=== PATIENT | male | born 1955 | race Caucasian/White ===

== ENCOUNTER 2019-01-18 14:52 | Emergency (ER) | payer OTHER ==
[2019-01-18] MEDS ORDERED: PROMETHAZINE HCL INJ 25 MG in SODIUM CHLORIDE 0.9% 50ML 50 ML IVPB ONE (15:16)
[2019-01-18] MEDS ORDERED: SODIUM CHLORIDE 0.9% 1000ML 1,000 ML IVS ONE (15:16)
[2019-01-18] MEDS ORDERED: PROMETHAZINE HCL INJ 25 MG/ML VIAL ONE (15:18)
[2019-01-18] MEDS ORDERED: SODIUM CHLORIDE 0.9% 50ML 50 ML ONE (15:18)
--- NOTE | 2019-01-18 16:11 | RAD ---
EXAM DESCRIPTION: Abdomen Series CLINICAL HISTORY: nv dizziness COMPARISON: None. TECHNIQUE: Upright PA chest with frontal views of the abdomen. FINDINGS: The lungs are clear without pleural effusion or pneumothorax. The heart is normal in size. The bowel gas pattern is normal without evidence of obstruction. No free subdiaphragmatic air. No abnormal calcifications. No acute osseous abnormality. Partially visualized left femoral head and neck hardware fixation. IMPRESSION: 1. Unremarkable acute abdominal series. Electronically signed by: Michael Nam DO 01/18/2019 4:09 PM CDT
--- NOTE | 2019-01-18 17:11 | ED.PDOC ---
History of Present Illness - General Chief Complaint: GI Problem Stated Complaint: dizzy,vomiting Time Seen by Provider: 01/18/19 14:58 Source: patient Exam Limitations: no limitations - History of Present Illness Initial Comments: the patient is 63-year-old male presenting to the emergency room secondary to headache, dizziness and nausea and vomiting. Symptoms started yesterday with some nausea and vomiting. Vague diffuse abdominal cramping. No point tenderness. No blood or bile in the vomitus. No diarrhea. This morning he woke up with a headache and some dizziness with standing. That has continued throughout the day along with some continued nausea. The patient is pleasant and cooperative and does not appearappear to be any significant distress at this time. Timing/Duration: 24 hours Severity: moderate Improving Factors: immobilization Worsening Factors: movement Associated Symptoms: headaches, malaise, nausea/vomiting Allergies/Adverse Reactions: Allergies Penicillins Allergy (Verified 01/18/19 15:12) Home Medications: Ambulatory Orders Famotidine 20 mg PO DAILY #30 tab 01/18/19 Gabapentin 100 mg PO .0900,1500 01/18/19 Gabapentin 200 mg PO BEDTIME 01/18/19 Omeprazole 20 mg PO BID 01/18/19 Ondansetron Odt [Zofran ODT] 4 mg PO Q8HR PRN #5 tab 01/18/19 Terazosin HCl [Terazosin Hydrochloride] 2 mg PO BEDTIME 01/18/19 Trazodone HCl 100 mg PO BEDTIME 01/18/19 Review of Systems - Review of Systems Constitutional: States: malaise EENTM: States: no symptoms reported Respiratory: States: no symptoms reported Cardiology: States: no symptoms reported Gastrointestinal/Abdominal: States: nausea, vomiting Genitourinary: States: no symptoms reported Musculoskeletal: States: no symptoms reported Skin: States: no symptoms reported Neurological: States: headache, other - dizziness Endocrine: States: no symptoms reported All other Systems: No Change from Baseline Past Medical History (General) - Patient Medical History Hx Stroke: No Hx Congestive Heart Failure: No Hx Hypertension: Yes Hx Diabetes: No - Vaccination History Hx Influenza Vaccination: Yes Hx Pneumococcal Vaccination: Yes - Social History Hx Tobacco Use: Yes Hx Alcohol Use: Yes - 4-6 beers/day Family Medical History - Family History Father Family History: Unknown Living Status: Unknown Physical Exam - Physical Exam General Appearance: Alert, Comfortable, No apparent distress Eye Exam: bilateral normal Ears, Nose, Throat: hearing grossly normal, normal ENT inspection, normal pharynx Neck: full range of motion, supple Respiratory: lungs clear, normal breath sounds, no respiratory distress, no accessory muscle use Cardiovascular/Chest: normal peripheral pulses, regular rate, rhythm, no edema Peripheral Pulses: radial,right: 2+, radial,left: 2+, dorsalis pedis,right: 2+, dorsalis pedis,left: 2+ Gastrointestinal/Abdominal: non tender, soft, other - no significant palpable mass. No rebound or peritoneal signs. No point tenderness. 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 The patient likely has obtained a viral gastroenteritis. Headache and dizziness have responded very well to rehydration. He is going to be written for famotidine for the next few weeks for gastritis issues as well as some Zofran for nausea issues. He needs to ambulate carefully. Keep well hydrated. ER warnings were given. Follow-up with primary care doctor later this week. - Results/Orders Results/Orders: 01/18/19 15:15 Telemetry .CONTINUOUS Vital Signs-Tilt PRN 01/18/19 15:30 EKG STAT Laboratory Results - last 24 hr 01/18/19 01/18/19 01/18/19 15:15 15:15 15:15 WBC 10.1 RBC 4.53 L Hgb 15.4 Hct 44.3 MCV 97.7 H MCH 33.9 H MCHC 34.7 RDW 13.9 Plt Count 268 MPV 7.7 Absolute Neuts (auto) 7.20 H Absolute Lymphs (auto) 1.80 Absolute Monos (auto) 0.90 H Absolute Eos (auto) 0.00 Absolute Basos (auto) 0.10 Neutrophils % 71.4 Lymphocytes % 17.9 L Monocytes % 9.3 H Eosinophils % 0.3 L Basophils % 1.1 D-Dimer, Quantitative 1.53 H* Sodium 132 L Potassium 4.3 Chloride 98 L Carbon Dioxide 19 L Anion Gap 19.3 H BUN 11 Creatinine 0.84 BUN/Creatinine Ratio 13.1 Random Glucose 70 Serum Osmolality 262.3 L Lactic Acid Calcium 8.9 Magnesium 2.2 Total Bilirubin 1.0 AST 35 ALT 25 Alkaline Phosphatase 59 Creatine Kinase 100 CK-MB (CK-2) 1.8 CK-MB (CK-2) % Not Reportable Troponin I < 0.02 B-Natriuretic Peptide 38.4 Serum Total Protein 7.1 Albumin 4.0 Globulin 3.1 Albumin/Globulin Ratio 1.3 Amylase 94 Lipase 32 TSH 1.01 Urine Color Urine Appearance Urine pH Ur Specific [place] Urine Protein Urine Glucose (UA) Urine Ketones Urine Blood Urine Nitrite Urine Bilirubin Urine Urobilinogen Ur Leukocyte Esterase Urine RBC Urine WBC Ur Epithelial Cells Urine Bacteria 01/18/19 01/18/19 15:15 15:23 WBC RBC Hgb Hct MCV MCH MCHC RDW Plt Count MPV Absolute Neuts (auto) Absolute Lymphs (auto) Absolute Monos (auto) Absolute Eos (auto) Absolute Basos (auto) Neutrophils % Lymphocytes % Monocytes % Eosinophils % Basophils % D-Dimer, Quantitative Sodium Potassium Chloride Carbon Dioxide Anion Gap BUN Creatinine BUN/Creatinine Ratio Random Glucose Serum Osmolality Lactic Acid 1.3 Calcium Magnesium Total Bilirubin AST ALT Alkaline Phosphatase Creatine Kinase CK-MB (CK-2) CK-MB (CK-2) % Troponin I B-Natriuretic Peptide Serum Total Protein Albumin Globulin Albumin/Globulin Ratio Amylase Lipase TSH Urine Color Yellow Urine Appearance Clear Urine pH 5.5 Ur Specific [place] 1.015 Urine Protein Negative Urine Glucose (UA) Negative Urine Ketones 80 H Urine Blood Negative Urine Nitrite Negative Urine Bilirubin Negative Urine Urobilinogen 0.2 Ur Leukocyte Esterase Negative Urine RBC 0 Urine WBC 0 Ur Epithelial Cells 0 Urine Bacteria 0 acute abdominal series appears benign. EKG shows normal sinus rhythm at 81 bpm. Normal R-wave progression. Normal axis. No ST segment or T-wave changes indicative of ischemia. Normal QT interval. Departure - Departure Clinical Impression: Viral gastroenteritis, Dehydration, Orthostasis Disposition: Discharge to Home or Self Care Condition: Fair Departure Forms: ED Discharge - Pt. Copy, Patient Portal Self Enrollment Instructions: DI for Gastritis, DI for Diarrhea and Traveler's Diarrhea -- Adult Diet: regular diet Activity: increase activity as tolerated Prescriptions: Ondansetron Odt [Zofran ODT] 4 mg PO Q8HR PRN #5 tab PRN Reason: Nausea--Moderate Famotidine 20 mg PO DAILY #30 tab Home Medications: Ambulatory Orders Famotidine 20 mg PO DAILY #30 tab 01/18/19 Gabapentin 100 mg PO .0900,1500 01/18/19 Gabapentin 200 mg PO BEDTIME 01/18/19 Omeprazole 20 mg PO BID 01/18/19 Ondansetron Odt [Zofran ODT] 4 mg PO Q8HR PRN #5 tab 01/18/19 Terazosin HCl [Terazosin Hydrochloride] 2 mg PO BEDTIME 01/18/19 Trazodone HCl 100 mg PO BEDTIME 01/18/19 Additional Instructions: the patient is a 63-year-old female presenting with symptoms of nausea and vomiting for the last 24 hours followed by headache and dizziness. The pat ient likely has obtained a viral gastroenteritis. Headache and dizziness have responded very well to rehydration. He is going to be written for famotidine for the next few weeks for gastritis issues as well as some Zofran for nausea issues. He needs to ambulate carefully. Keep well hydrated. ER warnings were given. Follow-up with primary care doctor later this week.
[2019-01-18 17:45] VITALS: BP 155/85; TEMP 97; O2SAT 98
== END 2019-01-18 17:44 | disposition home or self-care (01) ==
LOC: ER 14:52
DX: A08.4 Viral intestinal infection, unspecified (principal); E86.0 Dehydration; I95.1 Orthostatic hypotension; I10 Essential (primary) hypertension; Z87.891 Personal history of nicotine dependence; Z88.0 Allergy status to penicillin; Z79.899 Other long term (current) drug therapy
CPT/HCPCS: 74019; 80053; 81001; 82150; 82550; 82553; 83605; 83690; 83735; 83880; 84443; 84484; 85025; 85379; 93005; A4216; J2550; J7030

== ENCOUNTER → 2019-04-14 | Outpatient (CLI) | payer OTHER ==
--- NOTE | 2019-04-14 11:31 | CT ---
EXAM DESCRIPTION: Soft Tissue Neck w/Contrast: Computed Tomography CLINICAL HISTORY: 63 years Male, DYSPHAGIA COMPARISON: None. TECHNIQUE: Spiral, axial 2.5 x 2.5 mm scans through the neck soft tissues after infusion of IV contrast. Sagittal and coronal 2.0 mm reconstructions. No adverse reactions. Total Exam DLP: 400.21 mGy-cm. This exam was performed according to our departmental CT dose-optimization program which includes automated exposure control, adjustment of the mA and/or kV according to patient size and/or use of iterative reconstruction technique; to reduce radiation dose to as low as reasonably achievable (ALARA). FINDINGS: Inhomogeneously enhancing soft tissue mass occupying most of the right maxillary antrum and extending to the widened medial ostia into the right nasal passage and anterior right ethmoid air cells. Minimal thickening in the anterior left ethmoid air cells. Left maxillary antrum and ostiomeatal unit are intact. Included frontal sinuses and sphenoid sinuses are well aerated with no air-fluid levels. Bilateral mastoid air cells are unremarkable. Internal auditory structures are unremarkable. Nasopharynx is unremarkable. Oropharynx slightly narrowed but this is symmetric with no abnormal enhancement.. Hypopharynx is unremarkable. Normal enhancement. Glottis is negative. Normal caliber of the proximal trachea and esophagus. Included orbits, carotid glands, submandibular glands and sublingual glands are negative. No enlarged lymph nodes or soft tissue masses in the parapharyngeal spaces, carotid spaces, paracervical spaces. Slightly heterogeneous enhancement of the thyroid gland bilaterally. Spondylosis of the cervical spine at C4-5 C5-6 and C6-7 with Canal and neural foraminal narrowing particularly C5-6 and C6-7 along with facet arthrosis. Bilateral apical pleural thickening in the lungs with pleural-based bulla medial right apex. And small bilateral parenchymal blebs in a centrilobular distribution. IMPRESSION: 1. Aggressive inflammatory process in the right maxillary antrum eroding through the ostiomeatal unit into the right nasal passageway and anterior right ethmoid air cells. Enhancement pattern suggests a fungal etiology. Other sinuses are well aerated. 2. Symmetric narrowing of the upper oropharynx posterior to the soft palate which is slightly prominent. No abnormal enhancement, asymmetry, or mass. No adenopathy. 3. Cervical spondylosis. Please see above details. 4. Emphysematous changes in the included upper lung [place]. Electronically signed by: Lars Reza MD 04/14/2019 11:29 AM [facility]
== END ==
LOC: CT 08:21
PROVIDERS: ATTEND General Practice
DX: J34.9 Unspecified disorder of nose and nasal sinuses (principal); M47.892 Other spondylosis, cervical region; J43.9 Emphysema, unspecified; R13.10 Dysphagia, unspecified

== ENCOUNTER 2019-07-25 12:33 | Emergency (ER) | payer OTHER ==
--- NOTE | 2019-07-25 12:40 | ED.PDOC ---
History of Present Illness - General Time Seen by Provider: 07/25/19 12:36 Source: patient - History of Present Illness Initial Comments: 63 yo male bib EMS from home for cc of acute low back pain. Onset 3 days ago after bending and trying to push a couch at home - states it slipped forward unexpectedly and he felt a sudden twinge in his left low back and moderate pain at the time. Pain worsened then next day - reports constant, sharp, 7/10 severity pain to left low back since then, no radiation, worse with any movement or walking, nothing tried for relief. Denies any weakness/numbness. Having some urinary hesitancy but states has hx of prostate issues. Allergies/Adverse Reactions: Allergies Penicillins Allergy (Verified 01/18/19 15:12) Home Medications: Ambulatory Orders Famotidine 20 mg PO DAILY #30 tab 01/18/19 Gabapentin 100 mg PO .0900,1500 01/18/19 Gabapentin 200 mg PO BEDTIME 01/18/19 Omeprazole 20 mg PO BID 01/18/19 Ondansetron Odt [Zofran ODT] 4 mg PO Q8HR PRN #5 tab 01/18/19 Terazosin HCl [Terazosin Hydrochloride] 2 mg PO BEDTIME 01/18/19 Trazodone HCl 100 mg PO BEDTIME 01/18/19 Cyclobenzaprine HCl [Flexeril] 10 mg PO Q8H PRN 30 Days #30 tab 07/25/19 Tramadol HCl 50 mg PO Q6HR PRN 10 Days #20 tab 07/25/19 Review of Systems - Review of Systems Review of Systems: 07/25/19 12:39 as per HPI All other Systems: Reviewed and Negative Past Medical History (General) - Patient Medical History Hx Stroke: No Hx Congestive Heart Failure: No Hx Hypertension: Yes Hx Diabetes: No - Vaccination History Hx Influenza Vaccination: Yes Hx Pneumococcal Vaccination: Yes - Social History Hx Tobacco Use: Yes Hx Alcohol Use: Yes - 4-6 beers/day Family Medical History - Family History Father Family History: Unknown Living Status: Unknown Physical Exam - Physical Exam General Appearance: Alert, No apparent distress Eye Exam: bilateral normal Ears, Nose, Throat: hearing grossly normal, normal ENT inspection, normal pharynx Neck: non-tender, full range of motion, supple, normal inspection Respiratory: chest non-tender, lungs clear, normal breath sounds, no respiratory distress Cardiovascular/Chest: normal peripheral pulses, regular rate, rhythm, no edema, no murmur Peripheral Pulses: radial,right: 2+, radial,left: 2+ Gastrointestinal/Abdominal: non tender, soft, no organomegaly Back Exam: no CVA tenderness, no vertebral tenderness, decreased range of motion, muscle spasm - Left low back, other - SLR neg BL Extremity: normal range of motion, non-tender, normal inspection, no pedal edema, no calf tenderness 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 Consider also OA, UTI, compression frx, herniated disc, etc... -obtain bloodwork, XR L spine, UA -Toradol 30 mg IV, Flexeril 10 mg PO 07/25/19 13:46 -Pt reports pain much improved but still rates as 5/10 - will give Tramadol 50 mg PO -XR L spine shows mild sup/inf wedge deformity of L5 - likely chronic - no acute processes noted, reviewed by me. -CBC, CMP, UA unremarkable. -Discussed dx of low back strain and continued home trx plan - advised rest, ice, OTC analgesics. Will give PRN Rx of Flexeril and Tramadol. Advised close PCP f/u, return warnings discussed. Haider Hinds MD Billing #[id number] 07/25/19 12:36 COMPLETE METABOLIC PROFILE Stat Sodium Chloride 0.9% (Flush) [Saline Flush Syringe] 10 ml IV PRN PRN Laboratory Results - last 24 hr 07/25/19 07/25/19 07/25/19 12:36 12:36 13:08 WBC 9.0 RBC 4.77 Hgb 15.9 Hct 47.3 MCV 99.0 H MCH 33.4 H MCHC 33.7 RDW 13.7 Plt Count 285 MPV 8.5 Absolute Neuts (auto) 5.60 Absolute Lymphs (auto) 2.20 Absolute Monos (auto) 0.90 H Absolute Eos (auto) 0.20 Absolute Basos (auto) 0.10 Neutrophils % 62.4 Lymphocytes % 24.2 Monocytes % 10.4 H Eosinophils % 2.0 Basophils % 1.0 Sodium 135 Potassium 3.6 Chloride 102 Carbon Dioxide 23 Anion Gap 13.6 Calcium 9.2 Urine Color Yellow Urine Appearance Clear Urine pH 5.5 Ur Specific [place] <= 1.005 Urine Protein Negative Urine Glucose (UA) Negative Urine Ketones Negative Urine Blood Negative Urine Nitrite Negative Urine Bilirubin Negative Urine Urobilinogen 0.2 Ur Leukocyte Esterase Negative Urine RBC 0 Urine WBC 0 Ur Epithelial Cells 0 Urine Bacteria 0 Departure - Departure Clinical Impression: Degenerative disc disease, lumbar, Strain of muscle, fascia and tendon of lower back, initial encounter Time of Disposition: 13:49 Disposition: Discharge to Home or Self Care Condition: Fair Instructions: DI for Low Back Pain Diet: resume usual diet Prescriptions: Tramadol HCl 50 mg PO Q6HR PRN 10 Days #20 tab PRN Reason: Pain Cyclobenzaprine HCl [Flexeril] 10 mg PO Q8H PRN 30 Days #30 tab PRN Reason: Muscle Spasms Home Medications: Ambulatory Orders Famotidine 20 mg PO DAILY #30 tab 01/18/19 Gabapentin 100 mg PO .0900,1500 01/18/19 Gabapentin 200 mg PO BEDTIME 01/18/19 Omeprazole 20 mg PO BID 01/18/19 Ondansetron Odt [Zofran ODT] 4 mg PO Q8HR PRN #5 tab 01/18/19 Terazosin HCl [Terazosin Hydrochloride] 2 mg PO BEDTIME 01/18/19 Trazodone HCl 100 mg PO BEDTIME 01/18/19 Cyclobenzaprine HCl [Flexeril] 10 mg PO Q8H PRN 30 Days #30 tab 07/25/19 Tramadol HCl 50 mg PO Q6HR PRN 10 Days #20 tab 07/25/19 Additional Instructions: Continue OTC medications such as ibuprofen 600 mg every 6 hours and/or Tylenol 650 mg every 6 hours as needed for pain. You may take Tramadol and Flexeril as needed for breakthrough pain and muscle spasms. Do not drive or operate heavy machinery while taking these medications. Follow up in 1-2 weeks with your PCP is recommended.
[2019-07-25] MEDS: CYCLOBENZAPRINE HCL 10 MG TAB PO ONE (13:06)
[2019-07-25] MEDS: SODIUM CHLORIDE 0.9% (FLUSH) 10 ML SYG IV PRN (13:06)
[2019-07-25] MEDS: SODIUM CHLORIDE 0.9% 500ML 500 ML IVS ONE (13:07)
[2019-07-25] MEDS: KETOROLAC TROMETHAMINE INJ 30 MG/ML VIAL IV ONE (13:08)
--- NOTE | 2019-07-25 13:14 | RAD ---
EXAM DESCRIPTION: XR Lumbar Spine 3 Views CLINICAL HISTORY: 63 years Male, acute low back pain COMPARISON: None. FINDINGS: There is no evidence of acute fracture or dislocation or destructive bony lesion. There appears to be minimal depression of the upper and lower endplate of L5, probably chronic. Otherwise, vertebral body and interspace heights and alignment appear maintained. Metallic pins are noted in the proximal left femur. IMPRESSION: No significant bony abnormality identified in the lumbar spine. Electronically signed by: Leonardo Castillo MD 07/25/2019 1:13 PM [facility]
[2019-07-25] MEDS: traMADol HCL 50 MG TAB PO ONE (13:51)
[2019-07-25 13:52] VITALS: BP 124/86
[2019-07-25 14:47] VITALS: TEMP 97.8; O2SAT 96
== END 2019-07-25 14:00 | disposition home or self-care (01) ==
LOC: ER 12:33
DX: S39.012A Strain of muscle, fascia and tendon of lower back, initial encounter (principal); M51.36 Other intervertebral disc degeneration, lumbar region; I10 Essential (primary) hypertension; Z87.891 Personal history of nicotine dependence; X50.9XXA Other and unspecified overexertion or strenuous movements or postures, initial encounter; Y92.009 Unspecified place in unspecified non-institutional (private) residence as the place of occurrence of the external cause; Y93.89 Activity, other specified; Z88.0 Allergy status to penicillin; Z79.899 Other long term (current) drug therapy
CPT/HCPCS: 36415; 72100; 80053; 81001; 85025; J1885; J7040

== ENCOUNTER 2019-12-30 05:36 | Emergency (ER) | payer OTHER ==
[2019-12-30] MEDS ORDERED: ONDANSETRON INJ 4 MG/2 ML VIAL IV ONE (05:58)
[2019-12-30] MEDS ORDERED: SODIUM CHLORIDE 0.9% (FLUSH) 10 ML SYG IV PRN (05:58)
[2019-12-30] MEDS ORDERED: SODIUM CHLORIDE 0.9% 1000ML 1,000 ML IVS ONE (05:58)
--- NOTE | 2019-12-30 06:27 | ED.PDOC ---
History of Present Illness - General Chief Complaint: GI Problem Stated Complaint: nausea, vomting diarrhea Time Seen by Provider: 12/30/19 05:58 Source: patient, RN notes reviewed, Vital Signs reviewed, family - Exam Limitations: no limitations - History of Present Illness Initial Comments: Patient is a 64-year-old white male who appears older than his stated age who presents with complaints of nausea, vomiting and diarrhea for the last month. Symptoms are unchanged. They seem to be worsening. Nothing seems to make it better or worse. Patient was started on Zofran by his PCP yesterday. Timing/Duration: constant, other - This is been going on for over a month Severity: moderate Improving Factors: nothing Worsening Factors: nothing Associated Symptoms: nausea/vomiting Allergies/Adverse Reactions: Allergies Penicillins Allergy (Verified 01/18/19 15:12) Home Medications: Ambulatory Orders Gabapentin 100 mg PO .0900,1500 01/18/19 Gabapentin 200 mg PO BEDTIME 01/18/19 Omeprazole 20 mg PO BID 01/18/19 Trazodone HCl 100 mg PO BEDTIME 01/18/19 Cyclobenzaprine HCl [Flexeril] 10 mg PO Q8H PRN 30 Days #30 tab 07/25/19 Tramadol HCl 50 mg PO Q6HR PRN 10 Days #20 tab 07/25/19 Review of Systems - Review of Systems Constitutional: States: see HPI, malaise, weakness. Denies: chills, fever EENTM: States: no symptoms reported. Denies: eye pain, blurred vision, double vision, throat swelling, mouth pain Respiratory: States: no symptoms reported. Denies: cough, short of breath, stridor, wheezing Cardiology: States: see HPI, syncope - Near syncope. Denies: chest pain, palpitations Gastrointestinal/Abdominal: States: see HPI, diarrhea, nausea, vomiting. D enies: abdominal pain Genitourinary: States: no symptoms reported Musculoskeletal: States: no symptoms reported Skin: States: no symptoms reported. Denies: change in color, rash Neurological: States: no symptoms reported. Denies: headache, numbness, paresthesia, tingling, tremors Endocrine: States: no symptoms reported Hematologic/Lymphatic: States: no symptoms reported All other Systems: No Change from Baseline Past Medical History (General) - Patient Medical History Hx Stroke: No Hx Congestive Heart Failure: No Hx Hypertension: Yes Hx Diabetes: No Hx Gastroesophageal Reflux: Yes - Vaccination History Hx Influenza Vaccination: Yes Hx Pneumococcal Vaccination: Yes - Social History Hx Tobacco Use: Yes Hx Alcohol Use: Yes - 4-6 beers/day Hx Depression: Yes Family Medical History - Family History Father Family History: Unknown Living Status: Unknown Physical Exam - Physical Exam General Appearance: Alert, Anxious, Well Developed, Well Groomed, Well Nourished, Other - Patient smells heavily of cigarette smoke. Eye Exam: bilateral normal Ears, Nose, Throat: hearing grossly normal, normal ENT inspection, normal pharynx - Except dry mucous membranes Neck: non-tender, full range of motion, supple, normal inspection Respiratory: chest non-tender, lungs clear, normal breath sounds, no respiratory distress, no accessory muscle use Cardiovascular/Chest: normal peripheral pulses, regular rate, rhythm, no edema, no gallop, no JVD, no murmur Peripheral Pulses: radial,right: 2+, radial,left: 2+ Gastrointestinal/Abdominal: normal bowel sounds, non tender, soft, no organomegaly, no pulsatile mass Back Exam: normal inspection, no CVA tenderness, no vertebral tenderness Extremity: normal range of motion, non-tender, normal inspection 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 12/30/19 06:50 Patient's labs are within normal limits. There is a negative tilt test. Patient has not vomited or had diarrhea since here. Waiting on results of chest x-ray. Will handoff the patient to Dr. Jones.. Arsh Lyman M.D. #[id number] Departure - Departure Clinical Impression: Vomiting and diarrhea Time of Disposition: 06:56 Disposition: Discharge to Home or Self Care Condition: Good Departure Forms: ED Discharge - Pt. Copy, Patient Portal Self Enrollment Referrals: Jaspal Feliciano MD [Primary Care Provider] - 1-5 Days Home Medications: Ambulatory Orders Gabapentin 100 mg PO .0900,1500 01/18/19 Gabapentin 200 mg PO BEDTIME 01/18/19 Omeprazole 20 mg PO BID 01/18/19 Trazodone HCl 100 mg PO BEDTIME 01/18/19 Cyclobenzaprine HCl [Flexeril] 10 mg PO Q8H PRN 30 Days #30 tab 07/25/19 Tramadol HCl 50 mg PO Q6HR PRN 10 Days #20 tab 07/25/19
--- NOTE | 2019-12-30 07:14 | RAD ---
CHEST, TWO VIEW, XR CLINICAL HISTORY: weakness COMPARISON: None. TECHNIQUE: Frontal and lateral Chest. FINDINGS: Heart is normal in size. Normal pulmonary vascularity. Normal cardiomediastinal contours. Lungs are clear. Pleural spaces are clear. No pneumothorax. Lungs are hyperinflated. Mild thoracic spondylosis. Unremarkable soft tissues. IMPRESSION: 1. No acute chest disease. 2. Hyperinflation. Electronically signed by: Melida Patterson DO 12/30/2019 7:12 AM CDT
[2019-12-30 07:33] VITALS: BP 119/80; TEMP 97.4; O2SAT 98
== END 2019-12-30 07:35 | disposition home or self-care (01) ==
LOC: ER 05:36
DX: R11.2 Nausea with vomiting, unspecified (principal); R19.7 Diarrhea, unspecified; I10 Essential (primary) hypertension; K21.9 Gastro-esophageal reflux disease without esophagitis; F32.9 Major depressive disorder, single episode, unspecified; Z87.891 Personal history of nicotine dependence; Z88.0 Allergy status to penicillin; Z79.899 Other long term (current) drug therapy
CPT/HCPCS: 71046; 80048; 80076; 81001; 83690; 85025; A4216; J2405; J7030

== ENCOUNTER → 2020-01-11 | Outpatient (CLI) | payer OTHER | LOC: YCFC.O 12:03 | PROVIDERS: ATTEND Nurse Practitioner | DX: Z03.818 Encounter for observation for suspected exposure to other biological agents ruled out (principal); Z20.828 Contact with and (suspected) exposure to other viral communicable diseases ==

== ENCOUNTER → 2020-05-20 | Outpatient (CLI) | payer OTHER ==
--- NOTE | 2020-05-20 16:42 | US ---
EXAM DESCRIPTION: Abdomen,Complete: Ultrasound. CLINICAL HISTORY: 64 years Male ABDOMINAL PAIN COMPARISON: None Available. TECHNIQUE: Transabdominal scanning: grayscale and Doppler modes. FINDINGS: Gallbladder: normal size, shape, echogenicity; no intraluminal stones or sludge. No fluid around the gallbladder. No wall thickening. 1.6 mm. Non-tender with transducer pressure. Common bile duct: caliber 1.2 mm within normal limits. Liver: Heterogeneously increased echogenicity; contour liver capsule smooth where seen. No fluid around the liver. Intrahepatic biliary ducts normal caliber. Doppler hepatopedal flow and normal caliber portal vein 12 mm.. Long axis right lobe 15.2 cm. Pancreas: normal size and echogenicity. Duct not seen. Complete abdominal aorta: Normal caliber from the proximal segment to the distal bifurcation.. IVC: visualized and normal caliber. Right kidney: long axis measures 10.5 cm; volume 158.4 mL. Cortical echogenicity hypoechoic. Normal cortical thickness. No echogenic stones; no hydronephrosis. Left kidney: long axis measures 10.1 cm; volume 170.6 mL.. Cortical echogenicity normal. Normal cortical thickness. 9.5 x 9.0 mm cyst. No echogenic stones; no hydronephrosis. Spleen: Normal. No focal lesions.. 8.7 cm long axis. Other: None. IMPRESSION: Left kidney with a cyst almost 1 cm diameter. Otherwise unremarkable. Fatty liver upper normal limits in size. Physiologic ducts and vascularity. Smooth capsule with no ascites. Gallbladder, common bile duct, pancreas, spleen and right kidney with negative findings. Normal caliber of the abdominal aorta and IVC. Electronically signed by: Lars Reza MD 05/20/2020 4:41 PM [facility]
== END ==
LOC: US 08:27
PROVIDERS: ATTEND General Practice
DX: N28.1 Cyst of kidney, acquired (principal); K76.0 Fatty (change of) liver, not elsewhere classified